=== PATIENT | male | born 1940 | race Caucasian/White ===

== ENCOUNTER 2020-06-02 12:57 | Inpatient (IN) | payer MEDICARE, OTHER ==
[~2020-06-02 12:57] MED LIST: Iopamidol-370 76% 500 ML 1 ML ONE
[2020-06-02 13:39] LABS: #Lymphocytes 0.9 thou/uL (1.20-3.40); #Monocytes 0.3 thou/uL (0.11-0.59); #Neutrophils 9.6 thou/uL (1.40-6.50); %Basophils 0.2 % (0.0-1.0); %Eosinophils 0.3 % (0.0-10.0); %Lymphocytes 8.3 % (21.0-51.0); %Monocytes 2.4 % (0.0-10.0); %Neutrophils 88.9 % (42.0-75.0); Hemoglobin 15.3 g/dL (14.0-18.0); Mean Corpuscular HGB CONC 32.8 g/dL (32.0-36.0); Mean Corpuscular Hemoglobin 29.3 pg (27.0-31.0); Mean Corpuscular Volume 89.1 fL (78.0-98.0); Mean Platelet Volume 8.3 fL (7.4-10.4); Platelet Count 250 thou/uL (130-400); RBC Distribution Width 13.6 % (11.5-14.5); Red Blood Cell (RBC) Count 5.23 mill/uL (4.70-6.10); White Blood Cell (WBC) Count 10.8 thou/uL (4.8-10.8)
--- NOTE | 2020-06-02 13:59 | RAD ---
XR Chest 1 View Portable HISTORY: Chest pain.COVID 19 Positive COMPARISON: None FINDINGS: The heart size normal. There is patchy opacities in the lower lung nelson, right greater th an left. No pneumothoraces or pleural effusions are seen. IMPRESSION: Findings are suspicious for COVID 19 Pneumonia.
[2020-06-02 14:02] LABS: ALT (SGPT) 59 U/L (8-55); AST (SGOT) 69 U/L (5-34); Albumin 3.6 g/dL (3.4-4.8); Alkaline Phosphatase 99 U/L (40-110); Anion Gap 17 mmol/L (10-20); BUN (Urea Nitrogen) 19 mg/dL (8.4-25.7); Bilirubin, Total 0.6 mg/dL (0.2-1.2); CK (CPK) 108 U/L (30-200); Calc. Creatinine Clearance 0 mL/min (70-130); Calcium 8.2 mg/dL (7.8-10.44); Carbon Dioxide 19 mmol/L (23-31); Chloride 98 mmol/L (98-107); Estimated GFR-MDRD 72; Globulin 3.4 g/dL (2.4-3.5); Glucose 103 mg/dL (83-110); Lipase 25 U/L (8-78); Potassium 4.1 mmol/L (3.5-5.1); Sodium 130 mmol/L (136-145)
[2020-06-02] MEDS ORDERED: traMADol HCl 50 MG TAB ONE (14:42)
[2020-06-02] MEDS ORDERED: Enoxaparin Sodium 100 MG/ML SYRINGE ONE (14:42)
[2020-06-02] MEDS ORDERED: Acetaminophen 325 MG Suppository ONE (15:03)
[2020-06-02] MEDS ORDERED: Acetaminophen 325 MG TAB ONE (15:03)
--- NOTE | 2020-06-02 15:09 | PDOC.FPRHP ---
- History of Present Illness Chief Complaint: COVID + PNA/Hypoxia History of Present Illness: Pt is a 80 yo male who presented as a transfer from [facility] in [place] for COVID +. He test positive on 05/29/20. He stated one day prior to that, he felt SOB and had a dry cough. On 05/29, he developed generalized CP and dizziness which prompted him to go to ER for evaluation. At [facility], he was dx with COVID PNA and sent home on 05/30 with azithromycin and augmentin courses. Pt did ok the following few days but then earlier this morning developed severe SOB and decided to return to ER. Pt's ekg at outside facility showed sinus tach, otherwise normal. Trop was negative x1. Found to have a temp today of 102.1F at outside ED. Initially had O2 requirement of 4L via NC. Upon arrival at our facility today, pt still complaining of occasional CP and SOB. Denies any GI sx including N/V, diarrhea. Pt's was tested for COVID this morning, results pending. Pt's daughter tested positive yesterday. ED Course: 1L NS bolus - Allergies/Adverse Reactions Allergies Allergy/AdvReac Type Severity Reaction Status Date / Time Cephalosporins Allergy Verified 06/02/20 15:16 - Home Medications Comments: aspirin 81 mg : ORAL Fish Oil 1,000 mg capsule venlafaxine extended release 24hr : Strength - 150 mg multivitamin oral 1 tab(s) Oral once a day. Vitamin B-6 oral 100 mg lisinopril 10mg pravastatin tramadol 50mg - History PMHx: HTN, HLD, peripheral neuropathy, anxiety/depression, CAD PSHx: 3 cardiac stents, hernia repair, back surgery FHx:noncontributory Social: former smoker (quit 30 yrs ago), former ETOH use (quit 20 yrs ago), denies illicit substance use - Review of Systems General: reports: fever/chills, weight/appetite/sleep changes (decreased appetite), fatigue Eyes: denies: eye pain, vision changes ENT: denies: nasal congestion Respiratory: reports: cough, shortness of breath Cardiovascular: reports: chest pain. denies: palpitation, edema Gastrointestinal: denies: nausea, vomiting, diarrhea, abdominal pain Genitourinary: denies: dysuria Skin: denies: rashes, lesions, jaundice Musculoskeletal: denies: pain, tenderness, arthritis/arthralgias Neurological: denies: syncope, seizure, weakness Psychological: reports: anxiety, depression - Vital signs BP: 117/71, MAP: 86, Pulse: 88, Resp: 35, Temp: 97.6 (Oral), Pain: 4, O2 sat: 90 on (Room Air - Physical Exam Constitutional: awake, alert and oriented, well developed -Constitutional: slight respiratory distress with resp rate in the 30s HEENT: normocephalic and atraumatic, EOMI, conjunctiva clear, grossly normal vision, grossly normal hearing Neck: supple, no JVD Chest: no-tender to palpation, no lesions Heart: normal S1/S2, no murmurs/rubs/gallops, pulses present, no edema -Heart: tachycardia Lungs: good air movement, no wheezing -Lungs: scattered crackles throughout Abdomen: soft, non-tender, bowel sounds present Musculoskeletal: normal structure, normal tone Neurological: no focal deficit, normal sensation Skin: no rash/lesions, good turgor, no jaundice Heme/Lymphatic: no unusual bruising or bleeding Psychiatric: normal mood and affect FMR H&P: Results - Labs Result Diagrams: 06/02/20 13:29 06/02/20 13:29 Lab results: WBC 10.8 thou/uL (4.8-10.8) 06/02/20 13:29 Hgb 15.3 g/dL (14.0-18.0) 06/02/20 13:29 Hct 46.6 % (42.0-52.0) 06/02/20 13:29 MCV 89.1 fL (78.0-98.0) 06/02/20 13:29 Plt Count 250 thou/uL (130-400) 06/02/20 13:29 Neutrophils % 88.9 % (42.0-75.0) H 06/02/20 13:29 Sodium 130 mmol/L (136-145) L 06/02/20 13:29 Potassium 4.1 mmol/L (3.5-5.1) 06/02/20 13:29 Chloride 98 mmol/L (98-107) 06/02/20 13:29 Carbon Dioxide 19 mmol/L (23-31) L 06/02/20 13:29 BUN 19 mg/dL (8.4-25.7) 06/02/20 13:29 Creatinine 1.00 mg/dL (0.7-1.3) 06/02/20 13:29 Glucose 103 mg/dL (83-110) 06/02/20 13:29 Calcium 8.2 mg/dL (7.8-10.44) 06/02/20 13:29 Total Bilirubin 0.6 mg/dL (0.2-1.2) 06/02/20 13:29 AST 69 U/L (5-34) H 06/02/20 13:29 ALT 59 U/L (8-55) H 06/02/20 13:29 Alkaline Phosphatase 99 U/L (40-110) 06/02/20 13:29 Creatine Kinase 108 U/L (30-200) 06/02/20 13:29 B-Natriuretic Peptide Less than 10.0 pg/mL (0-100) 06/02/20 13:29 Serum Total Protein 7.0 g/dL (5.8-8.1) 06/02/20 13:29 Albumin 3.6 g/dL (3.4-4.8) 06/02/20 13:29 Lipase 25 U/L (8-78) 06/02/20 13:29 Laboratory Tests 06/02/20 13:29 D-Dimer 0.82 H - EKG Interpretation EKG: sinus tachycardia 102bpm, no ST or T wave changes FMR H&P: A/P - Plan 80 yo male who presented with SOB and was admitted for COVID+ PNA Acute Hypoxic Respiratory Failure 2/2 COVID PNA -tested COVID + on 05/29/20, CXR 06/02/20 suggestive of COVID PNA -CTA chest pending to r/o PE -continue azithromycin for additional 2 days -monitor resp status, currently requiring 4L via NC -start dexamethasone 10mg IV daily -consider pulm/ID consult once COVID test confirmed from outside facility -consider remdesevir and convalescent plasma -ABG ordered -status post 1L NS bolus in ED will continue IV maintenance fluids LR 75ml/hr HTN -continue home meds- lisinopril Hyperlipidemia -continue home meds- pravastatin CAD -continue home meds- ASA Anxiety/Depression -continue home meds- venlafaxine Diet: heart healthy VTE: lovenox 40mg bid Code: full PCP: Flip James DO ([place], [place]) Family: Charley () [phone]/ [phone] Dispo: stable, admit to inpt on medical COVID unit, additional labs pending, plan to obtain COVID test result, consider pulm/ID consult, anticipate LOS>48hrs FMR H&P: Upper Level - Pertinent history I dictated above HPI, ROS, and Physical Exam with procurement intern Dr. Vega. See plan below for additional information. - Plan Date/Time: 06/02/20 1506 I, Dr. Gotti, have evaluated this patient and agree with findings/plan as outlined by procurement intern resident. Pertinent changes/additions are listed here. 80 yo male who presented with SOB and was admitted for COVID+ PNA: Acute Hypoxic Respiratory Failure 12/30 COVID PNA -tested COVID + on 05/29/20, CXR 06/02/20 suggestive of COVID PNA -CTA chest on 05/29 outside facility with multifocal ground glass opacities, CTA here on 06/02 shows no evidence for PE & findings of COVID PNA -continue azithromycin for additional 2 days (started 05/29) -monitor resp status, currently requiring 4L via NC -start dexamethasone 10mg IV daily -consider pulm/ID consult once COVID test confirmed from outside facility -consider remdesevir and convalescent plasma when test result received -ABG ordered in ED -s/p 1L NS bolus in ED will continue IV maintenance fluids LR 75ml/hr -check Procal -monitor AM CBC, CMP -trend DDimer daily -serial CXRs in AM -Lovenox 40 mg BID, will check anti-10a level in AM HTN -continue home meds- lisinopril 10 mg daily Hyperlipidemia -continue home meds- pravastatin CAD -continue home meds- ASA 81 mg Anxiety/Depression -continue home meds- venlafaxine Diet: heart healthy VTE: lovenox 40mg bid Code: full PCP: Flip James DO ([place], [place]) Family: Charley () [phone]/ [phone] Dispo: Stable, admit to inpt on medical COVID unit. Additional labs pending, plan to obtain COVID test result from [facility]. Consider pulm/ID consult for additional medications. Anticipate LOS>48hrs. Addendum - Attending - Attending Attestation Date/Time: 06/02/20 8130 I personally evaluated the patient and discussed the management with Dr. Vega/ Shen. I agree with the History, Examination, Assessment and Plan documented above with any addition or exceptions noted below. Patient here for sudden worsening in respiratory status after being symptomatic from COVID19 for 5 days. He reports worsening cough and dyspnea that began this morning. Transferred here from OSH due to bed allocation. He is hypoxic on room air but improved to mid 90s on 4L. His ABG shows hyperventilation with CO2 19, O2 of 59. Patient will be admitted for hypoxic resp failure 2/2 COVID pneumonia. Continue Azithro, give IVF bolus then gentle fluids. Work on convalescent plasma and possible Remdesivir. He is clinically stable at current time for medical admission. Monitor respiratory status closely. Lovenox BID with anti-Xa level in AM. Trend D-dimer. Serial CXR. Further mgmt pending clinical course.
--- NOTE | 2020-06-02 15:48 | CT ---
CT PULMONARY ANGIOGRAM WITH IV CONTRAST AND 3D POSTPROCESSING: HISTORY: Elevated D-Dimer, COVID-positive pneumonia, hypoxia. FINDINGS: There is good contrast opacification of the pulmonary arterial vasculature without filling defects to suggest pulmonary embolism. There are vascular calcifications without evidence of aneurysmal dilatat ion of the thoracic aorta. No pleural or pericardial effusions are seen. Calcified pleural plaques ar e present on the left. There are patchy peripheral ground-glass infiltrates bilaterally. There are degenerative changes in t he spine. IMPRESSION: 1. No CT evidence of pulmonary embolism. 2. Findings are consistent with COVID-19 pneumonia. POS: MZA
[2020-06-02 15:49] LABS: Actual Bicarbonate (HCO3a) 14.7 mEq/L (22-28); Analyzer IN Cardio ER; Base Excess (BEa) -5.6 mEq/L (-2.0 to +3.0); Calcium, Ionized (arterial) 1.08 mmol/L (1.12-1.30); Carboxyhemoglobin (COHb) 0.6 gm% (0.0-3.0); Hemoglobin (Hb) 15.5 g/dL (14.0-18.0)
[2020-06-02 15:51] LABS: CO2 Tension 19.3 mmHg (35.0-45.0)
[2020-06-02 15:52] LABS: ALV-art Gradient 144.635 (0-20); O2 Tension (PaO2), arterial 59.4 mmHg (> 70.0); Puncture Site RRA
[2020-06-02] MEDS ORDERED: Lactated Ringer's 1,000 ML IV SCH (17:17)
[2020-06-02] MEDS ORDERED: Acetaminophen 650 MG Suppository PR PRN (17:17)
[2020-06-02] MEDS ORDERED: Dexamethasone 10 MG in Sodium Chloride 0.9% 50 ML IVPB SCH (17:30)
[2020-06-02 17:32] VITALS: BMI 26.9
[2020-06-02] MEDS: Enoxaparin Sodium 40 MG/0.4 ML SYRINGE SC SCH (20:23)
[2020-06-03 04:56] LABS: #Lymphocytes 0.4 thou/uL (1.20-3.40); #Monocytes 0.1 thou/uL (0.11-0.59); #Neutrophils 7.4 thou/uL (1.40-6.50); %Eosinophils 0.1 % (0.0-10.0); %Lymphocytes 5.4 % (21.0-51.0); %Monocytes 1.4 % (0.0-10.0); %Neutrophils 93.1 % (42.0-75.0); Hemoglobin 13.5 g/dL (14.0-18.0); Mean Corpuscular HGB CONC 32.8 g/dL (32.0-36.0); Mean Corpuscular Hemoglobin 29.2 pg (27.0-31.0); Mean Corpuscular Volume 89.1 fL (78.0-98.0); Mean Platelet Volume 7.1 fL (7.4-10.4); Platelet Count 227 thou/uL (130-400); RBC Distribution Width 13.5 % (11.5-14.5); Red Blood Cell (RBC) Count 4.63 mill/uL (4.70-6.10)
[2020-06-03 05:15] LABS: ALT (SGPT) 47 U/L (8-55); AST (SGOT) 46 U/L (5-34); Albumin 3.1 g/dL (3.4-4.8); Alkaline Phosphatase 92 U/L (40-110); Anion Gap 14 mmol/L (10-20); BUN (Urea Nitrogen) 17 mg/dL (8.4-25.7); Bilirubin, Total 0.4 mg/dL (0.2-1.2); Calc. Creatinine Clearance 98 mL/min (70-130); Calcium 8.3 mg/dL (7.8-10.44); Carbon Dioxide 19 mmol/L (23-31); Chloride 102 mmol/L (98-107); Estimated GFR-MDRD Greater than 90; Globulin 3.3 g/dL (2.4-3.5); Glucose 117 mg/dL (83-110); Potassium 4.1 mmol/L (3.5-5.1); Protein, Total 6.4 g/dL (5.8-8.1); Sodium 131 mmol/L (136-145)
[2020-06-03 05:22] LABS: INR-International Normal Ratio 1.1; PTT 50.6 sec (22.9-36.1); Prothrombin Time 14.1 sec (12.0-14.7)
[2020-06-03 05:23] LABS: D-Dimer Test 0.64 *mcg/mL (0.27-0.43)
--- NOTE | 2020-06-03 07:05 | PDOC.FM ---
- Subjective Subjective: Patient doing well this morning. O2 requirement down to 3L (from 4L) via N/C. Still complains of some dry cough and SOB. Patient is interested in receiving Remdesevir and plasma if determined he is a candidate. , Charley, called yesterday at patient's request and updated on patient's clinical condition and care plan. - Objective MAR Reviewed: Yes Vital Signs & Weight: Vital Signs (12 hours) Temp Pulse Resp BP Pulse Ox 06/03/20 04:00 97.7 F 75 20 113/63 92 L 06/02/20 23:16 98.6 F 83 18 118/68 93 L 06/02/20 20:37 98.8 F 89 20 135/64 93 L 06/02/20 20:00 93 L Weight Weight 92.487 kg I&O: 06/02/20 06/03/20 06/04/20 06:59 06:59 06:59 Intake Total 1100 Output Total 600 Balance 500 Result Diagrams: 06/03/20 04:34 06/03/20 04:34 Phys Exam - Physical Examination Constitutional: NAD HEENT: moist MMs, sclera anicteric Neck: no JVD, supple, full ROM Respiratory: no rhonchi scattered crackles throughout Cardiovascular: RRR, no significant murmur Gastrointestinal: soft, no distention, positive bowel sounds Musculoskeletal: no edema, pulses present Neurological: normal sensation, moves all 4 limbs Psychiatric: normal affect, A&O x 3 Skin: no rash, normal turgor Dx/Plan (1) Pneumonia due to COVID-19 virus Code(s): U07.1 - COVID-19; J12.89 - OTHER VIRAL PNEUMONIA Status: Acute (2) Sepsis Code(s): A41.9 - SEPSIS, UNSPECIFIED ORGANISM Status: Acute Qualifiers: Sepsis type: sepsis due to unspecified organism Severe sepsis acute organ dysfunction type: acute respiratory failure Acute respiratory failure type: with hypoxia Severe sepsis shock status: without septic shock (3) Acute hypoxemic respiratory failure due to COVID-19 Code(s): U07.1 - COVID-19; J96.01 - ACUTE RESPIRATORY FAILURE WITH HYPOXIA Status: Acute (4) Anxiety Code(s): F41.9 - ANXIETY DISORDER, UNSPECIFIED Status: Acute (5) Depression Code(s): F32.9 - MAJOR DEPRESSIVE DISORDER, SINGLE EPISODE, UNSPECIFIED Status : Acute Qualifiers: Depression Type: major depressive disorder Major depression recurrence: recurrent Active/Remission status: currently active Major depression episode severity: mild Qualified Code(s): F33.0 - Major depressive disorder, recurrent, mild (6) HTN (hypertension) Code(s): I10 - ESSENTIAL (PRIMARY) HYPERTENSION Status: Acute Qualifiers: Hypertension type: essential hypertension Qualified Code(s): I10 - Essential (primary) hypertension (7) HLD (hyperlipidemia) Code(s): E78.5 - HYPERLIPIDEMIA, UNSPECIFIED Status: Acute Qualifiers: Hyperlipidemia type: mixed hyperlipidemia Qualified Code(s): E78.2 - Mixed hyperlipidemia - Plan Plan: Acute Hypoxic Respiratory Failure 12/30 COVID PNA Sepsis 12/30 COVID 19 PNA -met sepsis criteria on admission with fever 102.1 (see paper chart outside ED record), tachycardia to 108, RR 35, WBC 12.8 -tested COVID + on 05/29/20, CXR 06/02/20 suggestive of COVID PNA -CTA chest on 05/29 outside facility with multifocal ground glass opacities, CTA here on 06/02 shows no evidence for PE & findings of COVID PNA -continue azithromycin for additional 2 days (started 05/29) -monitor resp status, currently requiring 4L via NC -start dexamethasone 10mg IV daily -consider pulm/ID consult today -COVID test confirmed from outside facility--copy can be found in paper chart -consider remdesevir and convalescent plasma when test result received -ABG ordered in ED: pCO2 19.3, pO2 59.6, pH 7.50, O2 sat 92% -s/p 1L NS bolus in ED will continue IV maintenance fluids LR 75ml/hr for 1 bag -Procal 0.27 -monitor AM CBC, CMP -trend DDimer daily: 0.78 > 0.64 -serial CXRs in AM -Lovenox 40 mg BID, anti-10a level 0.75 this AM (appropriate) HTN -continue home meds- lisinopril 10 mg daily Hyperlipidemia -continue home meds- pravastatin CAD -continue home meds- ASA 81 mg Anxiety/Depression -continue home meds- venlafaxine Diet: heart healthy VTE: lovenox 40mg bid Code: full PCP: Flip James DO ([place], [place]) Family: Charley () [phone]/ [phone] Dispo: Stable, admit to inpt on medical COVID unit. Consider pulm/ID consult today for additional medications. Anticipate discharge in >48hrs. Addendum - Attending - Attending Attestation Date/Time: 06/03/20 1257 I personally evaluated the patient and discussed the management with Dr. Gotti. I agree with the History, Examination, Assessment and Plan documented above with any addition or exceptions noted below. Patient overall stable. Still requiring 3L but feels improved. Continue treatment for COVID pneumonia. Working to get him Remdesivir and plasma. ID consulted for that. CXR appears stable. D dimer stable.
--- NOTE | 2020-06-03 08:14 | RAD ---
PORTABLE CHEST 1 VIEW: Date: 06/03/2020 Time: 0743 hours HISTORY: COVID pneumonia. COMPARISON: Previous day. FINDINGS: The heart size is stable. The aorta is tortuous. Patchy air space opacities are again seen bilaterall y. No pneumothoraces or large effusions are seen. IMPRESSION: Findings consistent with COVID-19 pneumonia. POS: MUNIRA
[2020-06-03] MEDS: Atorvastatin Calcium 20 MG TAB PO SCH (08:25)
[2020-06-03] MEDS: Aspirin 81 mg Enteric Coated Tablet PO SCH (08:25)
[2020-06-03] MEDS: Enoxaparin Sodium 40 MG/0.4 ML SYRINGE SC SCH ×2 (08:25→20:28)
[2020-06-03] MEDS: pyridOXINE 50 MG (B6) TAB PO SCH (08:26)
[2020-06-03] MEDS: Lisinopril 10 MG TAB PO SCH (08:26)
[2020-06-03] MEDS: Venlafaxine HCl XR 150 MG CAP PO SCH (08:26)
[2020-06-03] MEDS ORDERED: Azithromycin 250 MG TAB PO SCH (09:00)
[2020-06-03] MEDS ORDERED: Dexamethasone 10 MG in Sodium Chloride 0.9% 50 ML IVPB SCH (09:00)
[2020-06-03] MEDS ORDERED: Prevnar 13-Val Conj/PF 0.5 ML SYRINGE IM ONE (09:00)
[2020-06-03] MEDS ORDERED: Benzonatate 100 MG CAP PO SCH (09:45)
[2020-06-03] MEDS ORDERED: Lidocaine 2% Viscous Solution 10 ML, Aluminum & Magnesium Hydroxide 30 ML SSW SCH (10:15)
--- NOTE | 2020-06-03 13:33 | CON ---
DATE OF CONSULTATION: 06/03/2020 REASON FOR CONSULTATION: COVID pneumonia. HISTORY OF PRESENT ILLNESS: A 80-year-old with history of coronary artery disease with three cardiac stents and neuropathy, who became ill with respiratory symptoms, dyspnea, cough, and general malaise on May 28, he tested the next day positive for COVID, apparently acquired from his daughter and anyways, he lives in [place], [place], he had to be transferred over here when he deteriorated on Tuesday due to lack of hospital beds in the area. Currently, he is feeling a little better. The cough is less, still a little bit dyspneic on effort. No headaches, still with sense of smell preserved. No chest pain. No abdominal pain or diarrhea. No genitourinary symptoms. No joint symptoms or neurological symptoms. PAST MEDICAL HISTORY: Coronary artery disease, stents x3, peripheral neuropathy, and depression. ALLERGIES: CEPHALOSPORINS. CURRENT MEDICATIONS: Ecotrin, Lipitor, Zithromax, Tessalon, Decadron, Lovenox, Theragran, lisinopril, and venlafaxine. PHYSICAL EXAMINATION: VITAL SIGNS: T-max 98.7, blood pressure 120/70, pulse rate 80, respirations are 20, and O2 saturation 92% on 3 L, it was 95% when he came in. GENERAL: Appears comfortable at rest. SKIN: Normal. No lymphadenopathy. HEENT: Ocular movements conjugate. Sclerae white. Oral cavity, unremarkable. NECK: Supple. No jugular vein distention. LUNGS: Diminished breath sounds at the bases, but no obvious crackles or wheezing. HEART: S1 and S2. Regular rate. No S3 or S4. ABDOMEN: Soft, not distended or tender. No ascites. No bladder distention. EXTREMITIES: No joint inflammatory activity, moves extremities equally. NEUROLOGIC: Cognitive function appears to be intact. LABORATORY DATA: Sodium 130 to 131. Creatinine is stable at 1.0 and now is 0.81. Mild elevation of transaminases, which has improved since admission. Albumin is down to 3.1. Procal 0.27. D-dimer was 0.64 and chest x-ray and CT of chest with ground-glass opacities bilaterally, very symmetric distribution. ASSESSMENT: Coronary artery disease with neuropathy and COVID pneumonia. The patient has had 7th day of illness and moderate to severe involvement with fairly high O2 requirements per nasal cannula. Already, started on Decadron and we will go ahead and add remdesivir. The dose of Decadron that was used in the randomized control trial was 6 mg, so I think we could decrease the dosage to the tested amount, but monitor every other day inflammatory markers and D-dimer. He is already on enoxaparin twice daily. He is going to the inflammatory phase of the illness and we will see how he does. Job ID: [id number]
[2020-06-03] MEDS ORDERED: Non-Formulary Item 1 EACH in Sodium Chloride 0.9% 250 ML 210 ML IV SCH (14:00)
[2020-06-03] MEDS ORDERED: Dexamethasone 6 MG in Sodium Chloride 0.9% 50 ML IVPB SCH (14:00)
[2020-06-03] MEDS: Calcium Carbonate 500 MG ChewTAB PO PRN (20:27)
[2020-06-03] MEDS: Fish Oil 1,000 MG CAP PO SCH (20:27)
[2020-06-03] MEDS: Benzonatate 100 MG CAP PO PRN (20:27)
[2020-06-03] MEDS: Acetaminophen 325 MG TAB PO PRN (20:28)
[2020-06-03] MEDS: Multivitamin W/ Minerals 1 TAB PO SCH (20:28)
[2020-06-03] MEDS: traMADol HCl 50 MG TAB PO PRN (20:28)
[2020-06-03] MEDS ORDERED: GINKGO PO SCH (21:00)
[2020-06-03] MEDS ORDERED: [UNRECOGNIZED DRUG - OTHER] PO SCH (21:00)
[2020-06-03] MEDS ORDERED: LYCOPENE PO SCH (21:00)
[2020-06-03] MEDS ORDERED: MV MINS PO SCH (21:00)
[2020-06-03] MEDS ORDERED: Non-Formulary Item 1 EACH (Omega-3 Fatty Acids/Fish Oil [Fish Oil 1,000 Mg Capsule] 1 CAP PO SCH (21:00)
[2020-06-03] MEDS ORDERED: FOLIC PO SCH (21:00)
[2020-06-03] MEDS: ALPRAZolam 0.5 MG TAB PO PRN (21:38)
[2020-06-04] MEDS: Calcium Carbonate 500 MG ChewTAB PO PRN ×2 (00:28→04:39)
[2020-06-04] MEDS: Benzonatate 100 MG CAP PO PRN ×3 (04:39→20:51)
[2020-06-04] MEDS ORDERED: Fluticasone Propionate Nasal Spray 16 gm Bottle NASAL SCH (04:45)
[2020-06-04 05:30] LABS: #Lymphocytes 0.6 thou/uL (1.20-3.40); #Monocytes 0.5 thou/uL (0.11-0.59); #Neutrophils 10.7 thou/uL (1.40-6.50); %Eosinophils 0.1 % (0.0-10.0); %Lymphocytes 5.1 % (21.0-51.0); %Monocytes 4.1 % (0.0-10.0); %Neutrophils 90.7 % (42.0-75.0); Mean Corpuscular Hemoglobin 30.2 pg (27.0-31.0); Mean Corpuscular Volume 88.9 fL (78.0-98.0); Mean Platelet Volume 7.2 fL (7.4-10.4); Platelet Count 258 thou/uL (130-400); RBC Distribution Width 13.3 % (11.5-14.5); Red Blood Cell (RBC) Count 4.31 mill/uL (4.70-6.10); White Blood Cell (WBC) Count 11.8 thou/uL (4.8-10.8)
[2020-06-04 06:03] LABS: ALT (SGPT) 51 U/L (8-55); AST (SGOT) 43 U/L (5-34); Albumin 2.9 g/dL (3.4-4.8); Alkaline Phosphatase 93 U/L (40-110); Bilirubin, Direct 0.2 mg/dL (0.1-0.3); Bilirubin, Total 0.3 mg/dL (0.2-1.2)
[2020-06-04 06:06] LABS: Anion Gap 11 mmol/L (10-20); BUN (Urea Nitrogen) 21 mg/dL (8.4-25.7); Calc. Creatinine Clearance 103 mL/min (70-130); Calcium 8.2 mg/dL (7.8-10.44); Carbon Dioxide 21 mmol/L (23-31); Chloride 103 mmol/L (98-107); Estimated GFR-MDRD Greater than 90; Glucose 132 mg/dL (83-110); Potassium 4.1 mmol/L (3.5-5.1); Sodium 131 mmol/L (136-145)
--- NOTE | 2020-06-04 08:39 | PRG ---
DATE OF SERVICE: 06/04/2020 SUBJECTIVE: Mr. Marley is in the COVID unit or the observation unit . He is still little bit tachypneic, coughing. There is no fever. OBJECTIVE: VITAL SIGNS: His O2 saturations are stable at 93% and he is at 4 L nasal cannula. This is a bit higher than previous. He is breathing 18 times a minute. LUNGS: Symmetric air entry. HEART: S1, S2. Regular rate. He is not tachycardic. ABDOMEN: Soft, not distended. LABORATORY DATA: White cell count is 11.8, platelets 258, hemoglobin 13, 90% neutrophils. D-dimer is at 0.45, which is down from previous. Ferritin is still has not been repeated today. CRP is quite high. ASSESSMENT AND DISCUSSION: Coronary artery disease, neuropathy, COVID pneumonia. This is the eighth day of illness, moderate to severe involvement, on Decadron and remdesivir. I have discussed with him remdesivir indication and the fact that it is an Emergency Use Authorization drug by the FDA and that it has shown to reduce the course of illness and allow early discharge. Also discussed potential adverse reaction, particularly liver and kidney issues and the fact that , it has been administered for the course of 5 days. The patient understood and agreed with the administration. Job ID: [id number] MTDD
--- NOTE | 2020-06-04 08:51 | PDOC.FM ---
- Subjective Subjective: Patient doing okay this morning. Complains of feeling cold, mild headache, and dry cough. Asks if he can have Azelastine nasal spray, as this is what he has been taking at home for symptom management. Was approved for Remdesevir, started course yesterday. - Objective MAR Reviewed: Yes Vital Signs & Weight: Vital Signs (12 hours) Temp Pulse Resp BP Pulse Ox 06/04/20 04:00 97.9 F 67 18 112/65 93 L 06/04/20 00:00 97.4 F L 68 18 120/70 93 L Weight Admit Weight 92.487 kg Weight 92.487 kg I&O: 06/03/20 06/04/20 06/05/20 06:59 06:59 06:59 Intake Total 1100 1540 Output Total 600 1150 Balance 500 390 Result Diagrams: 06/04/20 04:37 06/04/20 04:37 Phys Exam - Physical Examination Constitutional: NAD HEENT: moist MMs, sclera anicteric Neck: no JVD, supple, full ROM Respiratory: no rhonchi scattered crackles throughout Cardiovascular: RRR, no significant murmur Gastrointestinal: soft, no distention Musculoskeletal: no edema, pulses present Neurological: normal sensation, moves all 4 limbs Psychiatric: normal affect, A&O x 3 Skin: no rash, normal turgor Dx/Plan (1) Pneumonia due to COVID-19 virus Code(s): U07.1 - COVID-19; J12.89 - OTHER VIRAL PNEUMONIA Status: Acute (2) Sepsis Code(s): A41.9 - SEPSIS, UNSPECIFIED ORGANISM Status: Acute Qualifiers: Sepsis type: sepsis due to unspecified organism Severe sepsis acute organ dysfunction type: acute respiratory failure Acute respiratory failure type: with hypoxia Severe sepsis shock status: without septic shock (3) Acute hypoxemic respiratory failure due to COVID-19 Code(s): U07.1 - COVID-19; J96.01 - ACUTE RESPIRATORY FAILURE WITH HYPOXIA Status: Acute (4) Anxiety Code(s): F41.9 - ANXIETY DISORDER, UNSPECIFIED Status: Acute (5) Depression Code(s): F32.9 - MAJOR DEPRESSIVE DISORDER, SINGLE EPISODE, UNSPECIFIED Status : Acute Qualifiers: Depression Type: major depressive disorder Major depression recurrence: recurrent Active/Remission status: currently active Major depression episode severity: mild Qualified Code(s): F33.0 - Major depressive disorder, recurrent, mild (6) HTN (hypertension) Code(s): I10 - ESSENTIAL (PRIMARY) HYPERTENSION Status: Acute Qualifiers: Hypertension type: essential hypertension Qualified Code(s): I10 - Essential (primary) hypertension (7) HLD (hyperlipidemia) Code(s): E78.5 - HYPERLIPIDEMIA, UNSPECIFIED Status: Acute Qualifiers: Hyperlipidemia type: mixed hyperlipidemia Qualified Code(s): E78.2 - Mixed hyperlipidemia - Plan Plan: Acute Hypoxic Respiratory Failure / COVID PNA Sepsis 12/30 COVID 19 PNA -met sepsis criteria on admission with fever 102.1 (see paper chart outside ED record), tachycardia to 108, RR 35, WBC 12.8 -tested COVID + on 05/29/20, CXR 06/02/20 suggestive of COVID PNA -CTA chest on 05/29 outside facility with multifocal ground glass opacities, CTA here on 06/02 shows no evidence for PE & findings of COVID PNA -completed Azithromycin course -monitor resp status, currently requiring 4L via NC -start dexamethasone 6 mg IV daily -Consult ID--Dr. Barney, appreciate recs -COVID test confirmed from outside facility--copy can be found in paper chart -approved Remdesevir, started 06/03, will continue through 06/07 -ABG ordered in ED: pCO2 19.3, pO2 59.6, pH 7.50, O2 sat 92% -s/p 1L NS bolus in ED & 1L LR, encourage PO intake -Procal 0.27 -monitor AM CBC, CMP -trend DDimer daily: 0.78 > 0.64 > 0.45 -serial CXRs in AM -Lovenox 40 mg BID, anti-10a level 0.75 (appropriate) HTN -continue home meds- lisinopril 10 mg daily Hyperlipidemia -continue home meds- pravastatin CAD -continue home meds- ASA 81 mg Anxiety/Depression -continue home meds- venlafaxine Diet: heart healthy VTE: lovenox 40mg bid Code: full PCP: Flip James DO ([place], [place]) Family: Charley () [phone]/ [phone] Dispo: Stable, admit to inpt on medical COVID unit. Anticipate discharge after completion of Remdesevir course. Addendum - Attending - Attending Attestation Date/Time: 06/04/20 3502 I personally evaluated the patient and discussed the management with Dr. Gotti. I agree with the History, Examination, Assessment and Plan documented above with any addition or exceptions noted below. Patient overall stable. He is s/p plasma infusion and now on Remdesevir day 2 this afternoon. O2 requirement stable. Labs overall stable. Continue current treatment. ID on board.
[2020-06-04] MEDS: Enoxaparin Sodium 40 MG/0.4 ML SYRINGE SC SCH ×2 (09:51→20:55)
[2020-06-04] MEDS: pyridOXINE 50 MG (B6) TAB PO SCH (09:51)
[2020-06-04] MEDS: Venlafaxine HCl XR 150 MG CAP PO SCH (09:51)
[2020-06-04] MEDS: Dexamethasone 6 MG in Sodium Chloride 0.9% 50 ML IVPB SCH (09:51)
[2020-06-04] MEDS: Atorvastatin Calcium 20 MG TAB PO SCH (09:52)
[2020-06-04] MEDS: Lisinopril 10 MG TAB PO SCH (09:52)
[2020-06-04] MEDS: Aspirin 81 mg Enteric Coated Tablet PO SCH (09:52)
[2020-06-04] MEDS: Azelastine 137 MCG/Spray 30 ML NS SCH (09:52)
[2020-06-04] MEDS: traMADol HCl 50 MG TAB PO PRN ×2 (09:53→20:51)
[2020-06-04] MEDS: Non-Formulary Item 1 EACH in Sodium Chloride 0.9% 250 ML 230 ML IV SCH (14:46)
[2020-06-04] MEDS: ALPRAZolam 0.5 MG TAB PO PRN (20:51)
[2020-06-04] MEDS: Fish Oil 1,000 MG CAP PO SCH (20:51)
[2020-06-04] MEDS: Acetaminophen 325 MG TAB PO PRN (20:54)
[2020-06-04] MEDS: Multivitamin W/ Minerals 1 TAB PO SCH (20:55)
[2020-06-05] MEDS: Calcium Carbonate 500 MG ChewTAB PO PRN ×3 (00:40→20:02)
[2020-06-05 05:48] LABS: #Lymphocytes 0.4 thou/uL (1.20-3.40); #Monocytes 0.4 thou/uL (0.11-0.59); #Neutrophils 11.9 thou/uL (1.40-6.50); %Eosinophils 0.1 % (0.0-10.0); %Lymphocytes 3.5 % (21.0-51.0); %Monocytes 3.1 % (0.0-10.0); %Neutrophils 93.3 % (42.0-75.0); Hemoglobin 13.8 g/dL (14.0-18.0); Mean Corpuscular HGB CONC 33.2 g/dL (32.0-36.0); Mean Corpuscular Hemoglobin 29.9 pg (27.0-31.0); Mean Corpuscular Volume 89.9 fL (78.0-98.0); Mean Platelet Volume 7.1 fL (7.4-10.4); Platelet Count 281 thou/uL (130-400); RBC Distribution Width 13.4 % (11.5-14.5); Red Blood Cell (RBC) Count 4.63 mill/uL (4.70-6.10); White Blood Cell (WBC) Count 12.7 thou/uL (4.8-10.8)
[2020-06-05] MEDS: Acetaminophen 325 MG TAB PO PRN ×3 (05:49→22:04)
[2020-06-05 06:08] LABS: ALT (SGPT) 41 U/L (8-55); AST (SGOT) 30 U/L (5-34); Alkaline Phosphatase 84 U/L (40-110); Anion Gap 12 mmol/L (10-20); BUN (Urea Nitrogen) 23 mg/dL (8.4-25.7); Bilirubin, Total 0.4 mg/dL (0.2-1.2); CRP (Inflammatory) 6.29 mg/dL (= or < 0.5); Calc. Creatinine Clearance 97 mL/min (70-130); Calcium 8.3 mg/dL (7.8-10.44); Carbon Dioxide 22 mmol/L (23-31); Chloride 103 mmol/L (98-107); Estimated GFR-MDRD Greater than 90; Glucose 112 mg/dL (83-110); Potassium 4.7 mmol/L (3.5-5.1); Sodium 132 mmol/L (136-145)
[2020-06-05 06:09] LABS: ALT (SGPT) 42 U/L (8-55); AST (SGOT) 29 U/L (5-34); Alkaline Phosphatase 86 U/L (40-110); Bilirubin, Direct 0.3 mg/dL (0.1-0.3); Bilirubin, Total 0.4 mg/dL (0.2-1.2)
--- NOTE | 2020-06-05 07:46 | RAD ---
Portable frontal chest radiograph: 06/05/2020 COMPARISON: 06/03/2020 HISTORY: Reevaluate Covid 19 pneumonia FINDINGS: There has been no significant interval change when compared to the prior examination. Bilat eral peripheral hazy alveolar opacity with superimposed linear interstitial density persists. No pneumothorax or large volume pleural effusion. Heart and mediastinal contours appear stable. IMPRESSION: Stable appearance of the chest as above.
--- NOTE | 2020-06-05 08:42 | PDOC.FM ---
- Subjective Subjective: Patient feeling better this morning. Had headache earlier which has since resolved after Tylenol. Complains of occasional cough and nasal congestion. Is on day 3 of Remdesevir course today. Charley updated to patient's condition and plan of care. - Objective MAR Reviewed: Yes Vital Signs & Weight: Vital Signs (12 hours) Temp Pulse Resp BP Pulse Ox 06/05/20 04:00 97.7 F 85 24 H 104/64 94 L 06/05/20 00:00 98.0 F 90 22 H 115/64 92 L 06/04/20 20:45 98.0 F 90 26 H 126/71 92 L Weight Admit Weight 92.487 kg Weight 92.487 kg I&O: 06/04/20 06/05/20 06/06/20 06:59 06:59 06:59 Intake Total 1540 Output Total 1150 Balance 390 Result Diagrams: 06/05/20 05:36 06/05/20 05:36 Phys Exam - Physical Examination Constitutional: NAD HEENT: moist MMs, sclera anicteric Neck: no JVD, supple, full ROM scattered crackles Cardiovascular: RRR, no significant murmur Gastrointestinal: soft, non-tender Musculoskeletal: no edema, pulses present Neurological: normal sensation, moves all 4 limbs Psychiatric: normal affect, A&O x 3 Skin: no rash, normal turgor Dx/Plan (1) Pneumonia due to COVID-19 virus Code(s): U07.1 - COVID-19; J12.89 - OTHER VIRAL PNEUMONIA Status: Acute (2) Sepsis Code(s): A41.9 - SEPSIS, UNSPECIFIED ORGANISM Status: Acute Qualifiers: Sepsis type: sepsis due to unspecified organism Severe sepsis acute organ dysfunction type: acute respiratory failure Acute respiratory failure type: with hypoxia Severe sepsis shock status: without septic shock (3) Acute hypoxemic respiratory failure due to COVID-19 Code(s): U07.1 - COVID-19; J96.01 - ACUTE RESPIRATORY FAILURE WITH HYPOXIA Status: Acute (4) Anxiety Code(s): F41.9 - ANXIETY DISORDER, UNSPECIFIED Status: Acute (5) Depression Code(s): F32.9 - MAJOR DEPRESSIVE DISORDER, SINGLE EPISODE, UNSPECIFIED Status : Acute Qualifiers: Depression Type: major depressive disorder Major depression recurrence: recurrent Active/Remission status: currently active Major depression episode severity: mild Qualified Code(s): F33.0 - Major depressive disorder, recurrent, mild (6) HTN (hypertension) Code(s): I10 - ESSENTIAL (PRIMARY) HYPERTENSION Status: Acute Qualifiers: Hypertension type: essential hypertension Qualified Code(s): I10 - Essential (primary) hypertension (7) HLD (hyperlipidemia) Code(s): E78.5 - HYPERLIPIDEMIA, UNSPECIFIED Status: Acute Qualifiers: Hyperlipidemia type: mixed hyperlipidemia Qualified Code(s): E78.2 - Mixed hyperlipidemia - Plan Plan: Acute Hypoxic Respiratory Failure 12/30 COVID PNA Sepsis 12/30 COVID 19 PNA -met sepsis criteria on admission with fever 102.1 (see paper chart outside ED record), tachycardia to 108, RR 35, WBC 12.8 -tested COVID + on 05/29/20, CXR 06/02/20 suggestive of COVID PNA -CTA chest on 05/29 outside facility with multifocal ground glass opacities, CTA here on 06/02 shows no evidence for PE & findings of COVID PNA -completed Azithromycin course -monitor resp status, currently requiring 4L via NC -did get up to 5L N/C requirement for about 6 hours overnight with sats in low 90s, this morning at 4L N/C with sat 92% -continue dexamethasone 6 mg IV daily -Consult ID--Dr. Barney, appreciate recs -COVID test confirmed from outside facility--copy can be found in paper chart -approved Remdesevir, started 06/03, will continue through 06/07 -ABG ordered in ED: pCO2 19.3, pO2 59.6, pH 7.50, O2 sat 92% -s/p 1L NS bolus in ED & 1L LR, encourage PO intake -Procal 0.27 -monitor AM CBC, CMP -trend DDimer daily: 0.78 > 0.64 > 0.45> 0.37 -serial CXRs in AM -Lovenox 40 mg BID, anti-10a level 0.75 (appropriate) HTN -continue home meds- lisinopril 10 mg daily Hyperlipidemia -continue home meds- pravastatin CAD -continue home meds- ASA 81 mg Anxiety/Depression -continue home meds- venlafaxine Social: Case Mgmt consulted to arrange home oxygen. Diet: heart healthy VTE: lovenox 40mg bid Code: full PCP: Flip James DO ([place], [place]) Family: Charley () [phone]/ [phone] Dispo: Stable, admit to inpt on medical COVID unit. Anticipate discharge after completion of Remdesevir course. Addendum - Attending - Attending Attestation Date/Time: 06/05/20 4483 I personally evaluated the patient and discussed the management with Dr. Gotti. I agree with the History, Examination, Assessment and Plan documented above with any addition or exceptions noted below. Patient overall stable. Currently on day 3 of his Remdesevir treatment for COVID pneumonia with hypoxia. Needs 2 more days of therapy. Monitor oxygenation status closely. Will work on getting home O2 set up for when he is able to be discharged home.
[2020-06-05] MEDS: Enoxaparin Sodium 40 MG/0.4 ML SYRINGE SC SCH ×2 (09:25→20:01)
[2020-06-05] MEDS: Azelastine 137 MCG/Spray 30 ML NS SCH (09:25)
[2020-06-05] MEDS: Dexamethasone 6 MG in Sodium Chloride 0.9% 50 ML IVPB SCH (09:25)
[2020-06-05] MEDS: Aspirin 81 mg Enteric Coated Tablet PO SCH (09:25)
[2020-06-05] MEDS: Atorvastatin Calcium 20 MG TAB PO SCH (09:25)
[2020-06-05] MEDS: Fluticasone Propionate Nasal Spray 16 gm Bottle NASAL SCH (09:26)
[2020-06-05] MEDS: Lisinopril 10 MG TAB PO SCH (09:26)
[2020-06-05] MEDS: pyridOXINE 50 MG (B6) TAB PO SCH (09:27)
[2020-06-05] MEDS: Venlafaxine HCl XR 150 MG CAP PO SCH (09:27)
[2020-06-05] MEDS: Non-Formulary Item 1 EACH in Sodium Chloride 0.9% 250 ML 230 ML IV SCH (14:16)
[2020-06-05] MEDS: ALPRAZolam 0.5 MG TAB PO PRN (20:03)
[2020-06-05] MEDS: Multivitamin W/ Minerals 1 TAB PO SCH (20:03)
[2020-06-05] MEDS: Fish Oil 1,000 MG CAP PO SCH (20:03)
[2020-06-05] MEDS: Senokot S 8.6-50 MG TAB PO PRN (20:10)
[2020-06-06 04:49] LABS: #Lymphocytes 0.7 thou/uL (1.20-3.40); #Monocytes 0.3 thou/uL (0.11-0.59); #Neutrophils 8.5 thou/uL (1.40-6.50); %Basophils 0.1 % (0.0-1.0); %Eosinophils 0.1 % (0.0-10.0); %Lymphocytes 7.6 % (21.0-51.0); %Monocytes 2.6 % (0.0-10.0); %Neutrophils 89.6 % (42.0-75.0); Mean Corpuscular HGB CONC 32.5 g/dL (32.0-36.0); Mean Corpuscular Hemoglobin 29.8 pg (27.0-31.0); Mean Corpuscular Volume 91.6 fL (78.0-98.0); Platelet Count 272 thou/uL (130-400); RBC Distribution Width 13.4 % (11.5-14.5); White Blood Cell (WBC) Count 9.5 thou/uL (4.8-10.8)
[2020-06-06 05:13] LABS: ALT (SGPT) 42 U/L (8-55); AST (SGOT) 37 U/L (5-34); Albumin 2.9 g/dL (3.4-4.8); Alkaline Phosphatase 90 U/L (40-110); Anion Gap 13 mmol/L (10-20); BUN (Urea Nitrogen) 20 mg/dL (8.4-25.7); Bilirubin, Total 0.5 mg/dL (0.2-1.2); Calc. Creatinine Clearance 106 mL/min (70-130); Calcium 8.6 mg/dL (7.8-10.44); Carbon Dioxide 20 mmol/L (23-31); Chloride 103 mmol/L (98-107); Estimated GFR-MDRD Greater than 90; Globulin 3.2 g/dL (2.4-3.5); Glucose 93 mg/dL (83-110); Potassium 4.9 mmol/L (3.5-5.1); Protein, Total 6.1 g/dL (5.8-8.1); Sodium 131 mmol/L (136-145)
[2020-06-06 05:19] LABS: ALT (SGPT) 45 U/L (8-55); AST (SGOT) 51 U/L (5-34); Albumin 2.9 g/dL (3.4-4.8); Alkaline Phosphatase 90 U/L (40-110); Bilirubin, Direct 0.2 mg/dL (0.1-0.3); Bilirubin, Total 0.5 mg/dL (0.2-1.2); Protein, Total 6.4 g/dL (5.8-8.1)
[2020-06-06] MEDS: Aspirin 81 mg Enteric Coated Tablet PO SCH (07:55)
[2020-06-06] MEDS: Enoxaparin Sodium 40 MG/0.4 ML SYRINGE SC SCH ×2 (07:55→19:55)
[2020-06-06] MEDS: Atorvastatin Calcium 20 MG TAB PO SCH (07:55)
[2020-06-06] MEDS: pyridOXINE 50 MG (B6) TAB PO SCH (07:56)
[2020-06-06] MEDS: Lisinopril 10 MG TAB PO SCH (07:56)
[2020-06-06] MEDS: Venlafaxine HCl XR 150 MG CAP PO SCH (07:56)
[2020-06-06] MEDS: Azelastine 137 MCG/Spray 30 ML NS SCH ×2 (07:57→08:02)
[2020-06-06] MEDS: Fluticasone Propionate Nasal Spray 16 gm Bottle NASAL SCH (07:57)
--- NOTE | 2020-06-06 08:04 | PDOC.FM ---
- Subjective Subjective: Patient feels good this morning. Still has a cough but says is improving. Says he is getting up and walking around room. Did complain of some abdominal pain overnight that resolved with some Tums. Did have a BM on Tuesday and minimal BM yesterday. Requesting something other than Senokot for stool softener. Currently on day 4 of Remdesevir course. - Objective MAR Reviewed: Yes Vital Signs & Weight: Vital Signs (12 hours) Temp Pulse Resp BP Pulse Ox 06/06/20 04:00 98.3 F 76 24 H 127/70 94 L 06/06/20 02:35 94 L 06/06/20 00:10 97.9 F 62 22 H 126/67 93 L 06/05/20 20:10 97.9 F 70 26 H 136/66 94 L Weight Admit Weight 92.487 kg Weight 92.487 kg I&O: 06/05/20 06/06/20 06/07/20 06:59 06:59 06:59 Intake Total 480 Balance 480 Result Diagrams: 06/06/20 04:32 06/06/20 04:32 Phys Exam - Physical Examination Constitutional: NAD HEENT: moist MMs, sclera anicteric Neck: no JVD, supple, full ROM Respiratory: no wheezing, clear to auscultation bilateral Cardiovascular: RRR, no significant murmur Gastrointestinal: soft, non-tender Musculoskeletal: no edema, pulses present Neurological: normal sensation, moves all 4 limbs Psychiatric: normal affect, A&O x 3 Skin: no rash, normal turgor Dx/Plan (1) Pneumonia due to COVID-19 virus Code(s): U07.1 - COVID-19; J12.89 - OTHER VIRAL PNEUMONIA Status: Acute (2) Sepsis Code(s): A41.9 - SEPSIS, UNSPECIFIED ORGANISM Status: Acute Qualifiers: Sepsis type: sepsis due to unspecified organism Severe sepsis acute organ dysfunction type: acute respiratory failure Acute respiratory failure type: with hypoxia Severe sepsis shock status: without septic shock (3) Acute hypoxemic respiratory failure due to COVID-19 Code(s): U07.1 - COVID-19; J96.01 - ACUTE RESPIRATORY FAILURE WITH HYPOXIA Status: Acute (4) Anxiety Code(s): F41.9 - ANXIETY DISORDER, UNSPECIFIED Status: Acute (5) Depression Code(s): F32.9 - MAJOR DEPRESSIVE DISORDER, SINGLE EPISODE, UNSPECIFIED Status : Acute Qualifiers: Depression Type: major depressive disorder Major depression recurrence: recurrent Active/Remission status: currently active Major depression episode severity: mild Qualified Code(s): F33.0 - Major depressive disorder, recurrent, mild (6) HTN (hypertension) Code(s): I10 - ESSENTIAL (PRIMARY) HYPERTENSION Status: Acute Qualifiers: Hypertension type: essential hypertension Qualified Code(s): I10 - Essential (primary) hypertension (7) HLD (hyperlipidemia) Code(s): E78.5 - HYPERLIPIDEMIA, UNSPECIFIED Status: Acute Qualifiers: Hyperlipidemia type: mixed hyperlipidemia Qualified Code(s): E78.2 - Mixed hyperlipidemia - Plan Plan: Acute Hypoxic Respiratory Failure 12/30 COVID PNA Sepsis 12/30 COVID 19 PNA -met sepsis criteria on admission with fever 102.1 (see paper chart outside ED record), tachycardia to 108, RR 35, WBC 12.8 -tested COVID + on 05/29/20, CXR 06/02/20 suggestive of COVID PNA -CTA chest on 05/29 outside facility with multifocal ground glass opacities, CTA here on 06/02 shows no evidence for PE & findings of COVID PNA -completed Azithromycin course -monitor resp status, currently requiring 4L via NC -did get up to 5L N/C requirement overnight with sats in low 90s, this morning at 4.5L N/C with sat 94% -continue dexamethasone 6 mg IV daily -Consult ID--Dr. Barney, appreciate recs -COVID test confirmed from outside facility--copy can be found in paper chart -approved Remdesevir, started 06/03, will continue through 06/07 -ABG ordered in ED: pCO2 19.3, pO2 59.6, pH 7.50, O2 sat 92% -s/p 1L NS bolus in ED & 1L LR, encourage PO intake -Procal 0.27 -monitor AM CBC, CMP -trend DDimer daily: 0.78 > 0.64 > 0.45> 0.37 > 0.48 -Lovenox 40 mg BID, anti-10a level 0.75 (appropriate), will recheck anti-10a level again today HTN -continue home meds- lisinopril 10 mg daily Hyperlipidemia -continue home meds- pravastatin CAD -continue home meds- ASA 81 mg Anxiety/Depression -continue home meds- venlafaxine Constipation -Senokot prn -add on Miralax misbah today Social: Case Mgmt consulted to arrange home oxygen. Orders placed in chart. Diet: heart healthy VTE: lovenox 40mg bid Code: full PCP: Flip James DO ([place], [place]) Family: Charley () [phone]/ [phone] Dispo: Stable, admit to inpt on medical COVID unit. Anticipate discharge after completion of Remdesevir course. Addendum - Attending - Attending Attestation Date/Time: 06/06/20 0913 I personally evaluated the patient and discussed the management with Dr. Gotti. I agree with the History, Examination, Assessment and Plan documented above with any addition or exceptions noted below. Patient overall stable with hypoxia from COVID pneumonia. O2 overall stable. On day 4 of Remdesevir. Work on setting up home O2 after he completes therapy tomorrow or Tuesday. Labs and CXR stable.
[2020-06-06] MEDS: Senokot S 8.6-50 MG TAB PO PRN (08:06)
[2020-06-06] MEDS ORDERED: Polyethylene Glycol 3350 17 GM Packet PO SCH (09:00)
[2020-06-06] MEDS: Dexamethasone 6 MG in Sodium Chloride 0.9% 50 ML IVPB SCH (09:48)
[2020-06-06] MEDS ORDERED: Dexamethasone 4 mg/ml Vial SLOW IVP SCH (10:00)
[2020-06-06] MEDS: Acetaminophen 325 MG TAB PO PRN ×2 (12:54→19:56)
[2020-06-06] MEDS: Non-Formulary Item 1 EACH in Sodium Chloride 0.9% 250 ML 230 ML IV SCH (12:55)
[2020-06-06] MEDS: Fish Oil 1,000 MG CAP PO SCH (19:55)
[2020-06-06] MEDS: Calcium Carbonate 500 MG ChewTAB PO PRN (19:55)
[2020-06-06] MEDS: Multivitamin W/ Minerals 1 TAB PO SCH (19:56)
[2020-06-06] MEDS: ALPRAZolam 0.5 MG TAB PO PRN (19:56)
[2020-06-06] MEDS ORDERED: Polyethylene Glycol 3350 17 GM Packet PO PRN (20:07)
[2020-06-07] MEDS: Acetaminophen 325 MG TAB PO PRN ×4 (03:27→20:01)
[2020-06-07 05:33] LABS: #Lymphocytes 0.7 thou/uL (1.20-3.40); #Monocytes 0.2 thou/uL (0.11-0.59); #Neutrophils 6.9 thou/uL (1.40-6.50); %Basophils 0.2 % (0.0-1.0); %Eosinophils 0.6 % (0.0-10.0); %Lymphocytes 8.7 % (21.0-51.0); %Monocytes 2.2 % (0.0-10.0); %Neutrophils 88.3 % (42.0-75.0); Hemoglobin 13.6 g/dL (14.0-18.0); Mean Corpuscular HGB CONC 31.9 g/dL (32.0-36.0); Mean Corpuscular Hemoglobin 28.5 pg (27.0-31.0); Mean Corpuscular Volume 89.2 fL (78.0-98.0); Mean Platelet Volume 7.2 fL (7.4-10.4); Platelet Count 311 thou/uL (130-400); RBC Distribution Width 13.2 % (11.5-14.5); Red Blood Cell (RBC) Count 4.77 mill/uL (4.70-6.10); White Blood Cell (WBC) Count 7.8 thou/uL (4.8-10.8)
[2020-06-07 05:56] LABS: ALT (SGPT) 39 U/L (8-55); AST (SGOT) 33 U/L (5-34); Albumin 2.9 g/dL (3.4-4.8); Alkaline Phosphatase 90 U/L (40-110); Bilirubin, Direct 0.4 mg/dL (0.1-0.3); Bilirubin, Total 0.6 mg/dL (0.2-1.2); Protein, Total 6.1 g/dL (5.8-8.1)
[2020-06-07 05:57] LABS: ALT (SGPT) 39 U/L (8-55); AST (SGOT) 32 U/L (5-34); Albumin 2.9 g/dL (3.4-4.8); Alkaline Phosphatase 89 U/L (40-110); Anion Gap 12 mmol/L (10-20); BUN (Urea Nitrogen) 18 mg/dL (8.4-25.7); Bilirubin, Total 0.6 mg/dL (0.2-1.2); Calc. Creatinine Clearance 100 mL/min (70-130); Calcium 8.4 mg/dL (7.8-10.44); Carbon Dioxide 23 mmol/L (23-31); Chloride 100 mmol/L (98-107); Estimated GFR-MDRD Greater than 90; Globulin 3.3 g/dL (2.4-3.5); Glucose 87 mg/dL (83-110); Potassium 4.2 mmol/L (3.5-5.1); Protein, Total 6.2 g/dL (5.8-8.1); Sodium 131 mmol/L (136-145)
--- NOTE | 2020-06-07 06:35 | PDOC.FM ---
- Subjective Subjective: pt resting comfortably in bed, reports yesterday was a good day. denies chest pain or sob. minimal cough, he is ready to go home. - Objective Vital Signs & Weight: Vital Signs (12 hours) Temp Pulse Resp BP Pulse Ox 06/07/20 03:24 97.4 F L 69 24 H 131/67 94 L 06/07/20 00:45 97.8 F 67 24 H 111/64 92 L 06/06/20 20:18 97.9 F 81 28 H 111/65 95 Weight Admit Weight 92.487 kg Weight 92.487 kg I&O: 06/05/20 06/06/20 06/07/20 06:59 06:59 06:59 Intake Total 480 720 Output Total 500 Balance 480 220 Result Diagrams: 06/07/20 05:11 06/07/20 05:12 Phys Exam - Physical Examination Constitutional: NAD HEENT: moist MMs Neck: full ROM no accessory muscle use, even rise and fall Gastrointestinal: no distention Musculoskeletal: no edema Neurological: moves all 4 limbs Psychiatric: normal affect Skin: no rash Dx/Plan (1) Acute hypoxemic respiratory failure due to COVID-19 Code(s): U07.1 - COVID-19; J96.01 - ACUTE RESPIRATORY FAILURE WITH HYPOXIA Status: Acute (2) Anxiety Code(s): F41.9 - ANXIETY DISORDER, UNSPECIFIED Status: Acute (3) Depression Code(s): F32.9 - MAJOR DEPRESSIVE DISORDER, SINGLE EPISODE, UNSPECIFIED Status : Acute Qualifiers: Depression Type: major depressive disorder Major depression recurrence: recurrent Active/Remission status: currently active Major depression episode severity: mild Qualified Code(s): F33.0 - Major depressive disorder, recurrent, mild (4) HLD (hyperlipidemia) Code(s): E78.5 - HYPERLIPIDEMIA, UNSPECIFIED Status: Acute Qualifiers: Hyperlipidemia type: mixed hyperlipidemia Qualified Code(s): E78.2 - Mixed hyperlipidemia (5) HTN (hypertension) Code(s): I10 - ESSENTIAL (PRIMARY) HYPERTENSION Status: Acute Qualifiers: Hypertension type: essential hypertension Qualified Code(s): I10 - Essential (primary) hypertension - Plan Plan: Acute Hypoxic Respiratory Failure 2/2 COVID PNA Sepsis 2/2 COVID 19 PNA -on admission with fever, tachypnea, tachycardia and wbc elevation -tested COVID + on 05/29/20, CXR/CTA c/w -completed Azithromycin course - O2 requirement fairly stable, home O2 has arrived -continue dexamethasone 6 mg IV daily -Consult ID--Dr. Barney, appreciate recs -COVID test confirmed from outside facility--copy can be found in paper chart -approved Remdesevir, started 06/03, will continue through 06/07 -routine lab monitoring stable -Lovenox 40 mg BID HTN -continue home meds- lisinopril 10 mg daily Hyperlipidemia -continue home meds- pravastatin CAD -continue home meds- ASA 81 mg Anxiety/Depression -continue home meds- venlafaxine Constipation -Senokot prn -add on Miralax misbah today VTE: lovenox 40mg bid Code: full PCP: Flip James DO ([place], [place]) Family: Charley () [phone]/ [phone] Dispo: final day of remdesivir course today, stable O2 requirement, consider DC later today with continued stability Addendum - Attending - Attending Attestation Date/Time: 06/07/20 0902 I personally evaluated the patient and discussed the management with Dr. Chappell. I agree with the History, Examination, Assessment and Plan documented above with any addition or exceptions noted below. Patient has remained on overall stable O2 requirement since admission. He is feeling well and ambulating without issue. He has been approved for home O2. He will complete Remdesevir today and if feeling well and no changes in clinical course, he could be considered for discharge later today for outpatient weaning of O2.
[2020-06-07] MEDS: Atorvastatin Calcium 20 MG TAB PO SCH (08:20)
[2020-06-07] MEDS: Dexamethasone 4 mg/ml Vial SLOW IVP SCH (08:20)
[2020-06-07] MEDS: Aspirin 81 mg Enteric Coated Tablet PO SCH (08:20)
[2020-06-07] MEDS: Enoxaparin Sodium 40 MG/0.4 ML SYRINGE SC SCH ×2 (08:21→20:01)
[2020-06-07] MEDS: Fluticasone Propionate Nasal Spray 16 gm Bottle NASAL SCH (08:22)
[2020-06-07] MEDS: Lisinopril 10 MG TAB PO SCH (08:22)
[2020-06-07] MEDS: Venlafaxine HCl XR 150 MG CAP PO SCH (08:22)
[2020-06-07] MEDS: pyridOXINE 50 MG (B6) TAB PO SCH (08:22)
[2020-06-07] MEDS: Non-Formulary Item 1 EACH in Sodium Chloride 0.9% 250 ML 230 ML IV SCH (13:27)
--- NOTE | 2020-06-07 16:13 | RAD ---
EXAM: CHEST ONE VIEW PORTABLE: 06/07/20 HISTORY: Increase in oxygen demand. COMPARISON: 06/05/20. There is some minimally progressive alveolar and ground glass opacity changes bilaterally, particular ly in the lateral aspect of the chest mid portion. Evidence for worsening COVID pneumonia. IMPRESSION: Slightly progressive alveolar and ground glass opacity changes particularly in the mid lung zone sinc e prior study certainly raising the concern for some progressive COVID-19 pneumonia. POS: RRE
[2020-06-07] MEDS: ALPRAZolam 0.5 MG TAB PO PRN (20:01)
[2020-06-07] MEDS: Benzonatate 100 MG CAP PO PRN (20:01)
[2020-06-07] MEDS: Fish Oil 1,000 MG CAP PO SCH (20:01)
[2020-06-07] MEDS: Multivitamin W/ Minerals 1 TAB PO SCH (20:01)
[2020-06-08] MEDS ORDERED: ALPRAZolam 0.5 MG TAB PO SCH (03:00)
--- NOTE | 2020-06-08 07:07 | PDOC.FM ---
- Subjective Subjective: pt resting comfortably in bed, reports chest congestion, denies pain or sob. - Objective Vital Signs & Weight: Vital Signs (12 hours) Temp Pulse Resp BP Pulse Ox 06/08/20 04:05 97.9 F 75 18 125/75 94 L 06/08/20 02:00 97.8 F 73 19 134/81 95 06/07/20 19:50 95 Weight Admit Weight 92.487 kg Weight 92.487 kg I&O: 06/07/20 06/08/20 06/09/20 06:59 06:59 06:59 Intake Total 720 810 Output Total 500 500 Balance 220 310 Result Diagrams: 06/08/20 06:44 06/08/20 06:44 Phys Exam - Physical Examination Constitutional: NAD HEENT: moist MMs Neck: supple even rise and fall, no accessory muscle use Gastrointestinal: no distention Musculoskeletal: no edema Neurological: moves all 4 limbs Psychiatric: normal affect Skin: no rash Dx/Plan (1) Acute hypoxemic respiratory failure due to COVID-19 Code(s): U07.1 - COVID-19; J96.01 - ACUTE RESPIRATORY FAILURE WITH HYPOXIA Status: Acute (2) Anxiety Code(s): F41.9 - ANXIETY DISORDER, UNSPECIFIED Status: Acute (3) Depression Code(s): F32.9 - MAJOR DEPRESSIVE DISORDER, SINGLE EPISODE, UNSPECIFIED Status : Acute Qualifiers: Depression Type: major depressive disorder Major depression recurrence: recurrent Active/Remission status: currently active Major depression episode severity: mild Qualified Code(s): F33.0 - Major depressive disorder, recurrent, mild (4) HLD (hyperlipidemia) Code(s): E78.5 - HYPERLIPIDEMIA, UNSPECIFIED Status: Acute Qualifiers: Hyperlipidemia type: mixed hyperlipidemia Qualified Code(s): E78.2 - Mixed hyperlipidemia (5) HTN (hypertension) Code(s): I10 - ESSENTIAL (PRIMARY) HYPERTENSION Status: Acute Qualifiers: Hypertension type: essential hypertension Qualified Code(s): I10 - Essential (primary) hypertension - Plan Plan: Acute Hypoxic Respiratory Failure 2/2 COVID PNA Sepsis / COVID 19 PNA -on admission with fever, tachypnea, tachycardia and wbc elevation -tested COVID + on 05/29/20, CXR/CTA c/w -completed Azithromycin course - O2 requirement fairly stable, home O2 has arrived -continue dexamethasone 6 mg IV daily -Consult ID--Dr. Barney, appreciate recs -COVID test confirmed from outside facility--copy can be found in paper chart -approved Remdesevir, started 06/03, will continue through 06/07 -routine lab monitoring stable -Lovenox 40 mg BID HTN -continue home meds- lisinopril 10 mg daily Hyperlipidemia -continue home meds- pravastatin CAD -continue home meds- ASA 81 mg Anxiety/Depression -continue home meds- venlafaxine Constipation -Senokot prn -add on Miralax misbah today VTE: lovenox 40mg bid Code: full PCP: Flip James DO ([place], [place]) Family: Charley () [phone]/ [phone] Dispo: completed remdesivir stable O2 requirement, consider DC later today with continued stability Addendum - Attending - Attending Attestation Date/Time: 06/08/20 4627 I personally evaluated the patient and discussed the management with Dr. Chappell. I agree with the History, Examination, Assessment and Plan documented above with any addition or exceptions noted below.+ Patient overall stable, now down to 4L O2. Has completed COVID treatment with Remdesevir. Monitor respiratory status today and hopeful discharge this afternoon if we can calm his anxiety about discharge.
[2020-06-08 07:20] LABS: ALT (SGPT) 34 U/L (8-55); AST (SGOT) 26 U/L (5-34); Albumin 2.9 g/dL (3.4-4.8); Alkaline Phosphatase 82 U/L (40-110); Bilirubin, Direct 0.3 mg/dL (0.1-0.3); Bilirubin, Total 0.5 mg/dL (0.2-1.2); Protein, Total 5.9 g/dL (5.8-8.1)
[2020-06-08 07:21] LABS: ALT (SGPT) 32 U/L (8-55); AST (SGOT) 24 U/L (5-34); Albumin 2.8 g/dL (3.4-4.8); Alkaline Phosphatase 80 U/L (40-110); Anion Gap 12 mmol/L (10-20); BUN (Urea Nitrogen) 17 mg/dL (8.4-25.7); Bilirubin, Total 0.5 mg/dL (0.2-1.2); Calc. Creatinine Clearance 111 mL/min (70-130); Calcium 8.2 mg/dL (7.8-10.44); Carbon Dioxide 21 mmol/L (23-31); Chloride 103 mmol/L (98-107); Estimated GFR-MDRD Greater than 90; Globulin 3.2 g/dL (2.4-3.5); Glucose 94 mg/dL (83-110); Potassium 4.1 mmol/L (3.5-5.1); Sodium 132 mmol/L (136-145)
[2020-06-08 07:34] LABS: Hemoglobin 13.7 g/dL (14.0-18.0); Mean Corpuscular HGB CONC 33.1 g/dL (32.0-36.0); Mean Corpuscular Hemoglobin 29.6 pg (27.0-31.0); Mean Corpuscular Volume 89.4 fL (78.0-98.0); Mean Platelet Volume 7.3 fL (7.4-10.4); Platelet Count 316 thou/uL (130-400); RBC Distribution Width 13.3 % (11.5-14.5); Red Blood Cell (RBC) Count 4.62 mill/uL (4.70-6.10)
[2020-06-08 07:47] LABS: Lymphocytes 7 % (21-51); MDiff Complete? YES; Monocytes 8 % (0-10); Neutrophil 85 % (42-75); Platelet Morphology Comment Appears Adequate
[2020-06-08] MEDS: Azelastine 137 MCG/Spray 30 ML NS SCH (08:28)
[2020-06-08] MEDS: Venlafaxine HCl XR 150 MG CAP PO SCH (08:29)
[2020-06-08] MEDS: Dexamethasone 4 mg/ml Vial SLOW IVP SCH (08:29)
[2020-06-08] MEDS: Aspirin 81 mg Enteric Coated Tablet PO SCH (08:29)
[2020-06-08] MEDS: Fluticasone Propionate Nasal Spray 16 gm Bottle NASAL SCH (08:29)
[2020-06-08] MEDS: Atorvastatin Calcium 20 MG TAB PO SCH (08:29)
[2020-06-08] MEDS: Enoxaparin Sodium 40 MG/0.4 ML SYRINGE SC SCH (08:30)
[2020-06-08] MEDS: Lisinopril 10 MG TAB PO SCH (08:30)
[2020-06-08] MEDS: pyridOXINE 50 MG (B6) TAB PO SCH (08:30)
[2020-06-08] MEDS: traMADol HCl 50 MG TAB PO PRN (12:14)
[2020-06-08 14:48] VITALS: BP 110/72; TEMP 97.4
[2020-06-08] MEDS ORDERED: guaiFENesin ER 600 MG TAB PO SCH (21:00)
--- NOTE | 2020-06-09 22:02 | DIS ---
DATE OF ADMISSION: 06/02/2020 DATE OF DISCHARGE: 06/08/2020 ADMITTING ATTENDING: Dr. Monty Wade. DISCHARGE ATTENDING: Dr. Monty Wade. CONSULTS: Infectious Disease, Dr. Louie Barney. IMAGING: Chest x-ray and CTA consistent with COVID-19 pneumonia. MEDICATIONS: 1. Men 50 Plus tablet p.o. at bedtime. 2. Vitamin B6 of 100 mg p.o. daily. 3. Venlafaxine 150 mg p.o. daily. 4. Fish oil 1000 mg capsule p.o. at bedtime. 5. Aspirin 81 mg daily. 6. Atorvastatin 20 mg p.o. daily. 7. Lisinopril 10 mg p.o. daily. 8. Xanax 0.5 mg p.o. at bedtime p.r.n. 9. Flonase 1 spray each naris b.i.d. 10. Mucinex 600 mg p.o. b.i.d. Discontinued medications: 1. Amoxicillin 875 mg. 2. Prednisone 10 mg. 3. Azithro 250 mg. DISCHARGE DIAGNOSES: 1. Acute hypoxic respiratory failure secondary to COVID pneumonia. 2. Hypertension. 3. Hyperlipidemia. 4. Coronary artery disease. 5. Anxiety and depression. 6. Constipation. HISTORY OF PRESENT ILLNESS AND HOSPITAL COURSE: A 80-year-old male, who was transferred from [facility] for COVID positive pneumonia with decreased oxygenation. He presented to our hospital as a transfer, was swabbed here and was positive, got a liter of NS upon arrival and was placed on nasal cannula. The patient admitted to inpatient medical unit for further workup and evaluation. He was deemed an appropriate candidate to receive remdesivir and did receive a 4-day course, tocilizumab as well. He received both of these. The patient remained stable on 0.5 L of nasal cannula without requiring further oxygen. Symptoms were controlled with Tylenol and other p.r.n. medications. The patient now able to tolerate diet. Deemed stable for discharge home with home oxygen and home health. Labs remained stable and even down trended. The patient at approximately day #12 of illness on discharge. DISCHARGE INSTRUCTIONS: 1. Location: Home with home health. 2. Diet: Heart healthy. 3. Activity: As tolerated. 4. Followup: Follow up with PCP, Dr. Santana in the next 3 to 5 days. Job ID: [id number]
--- NOTE | 2020-06-10 16:46 | EKG ---
Test Reason : SOB Blood Pressure : / mmHG Vent. Rate : 089 BPM Atrial Rate : 089 BPM P-R Int : 150 ms QRS Dur : 086 ms QT Int : 376 ms P-R-T Axes : 018 -06 005 degrees QTc Int : 457 ms Normal sinus rhythm Normal ECG Confirmed by BECCA ARMENTA DO ([id number]), news editor COLTON LEA ([id number]) on 06/10/2020 4:45:21 PM Referred By: Confirmed By:BECCA ARMENTA DO
== END 2020-06-08 15:28 | disposition home health service (06) | DRG 871 ==
LOC: ERS 12:57 → OBSVTOIN 15:09 → 2SW 15:09 → T4-A 06-07 19:11
PROVIDERS: ADMIT Student in an Organized Health Care Education/Training Program; ATTEND Student in an Organized Health Care Education/Training Program
DX: A41.89 Other specified sepsis (principal); J96.01 Acute respiratory failure with hypoxia; U07.1 COVID-19; J12.89 Other viral pneumonia; I10 Essential (primary) hypertension; E78.5 Hyperlipidemia, unspecified; G62.9 Polyneuropathy, unspecified; F41.9 Anxiety disorder, unspecified; F32.9 Major depressive disorder, single episode, unspecified; I25.10 Atherosclerotic heart disease of native coronary artery without angina pectoris; R65.20 Severe sepsis without septic shock; K59.00 Constipation, unspecified; Z88.1 Allergy status to other antibiotic agents; Z79.82 Long term (current) use of aspirin; Z79.899 Other long term (current) drug therapy; Z95.5 Presence of coronary angioplasty implant and graft; Z87.891 Personal history of nicotine dependence
CPT/HCPCS: 36415; 71045; 71275; 80048; 80053; 82550; 82728; 82805; 83690; 83880; 84145; 84484; 85025; 85379; 85520; 85610; 85730; 86140; 86850; 86900; 86901; 93005; 96372; J1100; J1650; Q9967